=== PATIENT | male | born 1970 | race Caucasian/White ===

== ENCOUNTER 2020-06-27 11:55 | Outpatient (CLI) | payer OTHER, SELFPAY ==
--- NOTE | 2020-06-27 12:00 | XR_ITS ---
WS: [id number] Portable AP upright chest, 06/27/2020 Clinical Data: COVID 19 POSITIVE Comparison: None. Findings: Bilateral patchy opacities throughout both lungs are consistent with bilateral pneumonia. T he heart is normal. No nodules, masses or effusions are seen. No pneumothorax is present. XR/XR chest 1V [id number] Impression: Patchy bilateral opacities consistent with diffuse pneumonia and recommend repe at chest x-ray in 2-3 days.
== END 2020-06-27 11:56 | disposition home or self-care (01) ==
LOC: RAD 12:00
PROVIDERS: Visit Provider Nurse Practitioner Family
DX: U07.1 COVID-19 (principal); J45.909 Unspecified asthma, uncomplicated
CPT/HCPCS: 71045